=== PATIENT | female | born 1970 | race Caucasian/White ===

== ENCOUNTER 2020-05-09 17:31 | Outpatient (REF) | payer OTHER, SELFPAY ==
--- NOTE | 2020-05-09 | XR_ITS ---
EXAMINATION: XR FOOT, RIGHT XR CALCANEUS, RIGHT CLINICAL INFORMATION: Chronic right heel pain. Plantar fascial fibromatosis. COMPARISON: Radiographs right foot and right ankle 12/28/2016. TECHNIQUE: Right foot is imaged in 3 views. Padron view calcaneus is also included. There are a total of 4 views. FINDINGS: There is no acute or healing fracture, dislocation, destructive process. There is no joint narrowing or erosive change. The subtalar joint is unremarkable. The retrocalcaneal recess is preserved. There is a tiny plantar calcaneal spur. There is no mineralization seen along the expected course of the plantar fascia. The midfoot and forefoot shows no joint narrowing or erosive change. There is some mild cortical thickening and some cortical sclerosis intraosseous side distal tibia similar to prior radiographs 2017, not of acute clinical significance. XR/XR calcaneus RT min 2V IMPRESSION: 1. Small plantar calcaneal spur. 2. No mineralization in the expected course plantar fascia. 3. No joint narrowing or erosive changes.
--- NOTE | 2020-05-09 | XR_ITS ---
EXAMINATION: XR FOOT, RIGHT XR CALCANEUS, RIGHT CLINICAL INFORMATION: Chronic right heel pain. Plantar fascial fibromatosis. COMPARISON: Radiographs right foot and right ankle 12/28/2016. TECHNIQUE: Right foot is imaged in 3 views. Padron view calcaneus is also included. There are a total of 4 views. FINDINGS: There is no acute or healing fracture, dislocation, destructive process. There is no joint narrowing or erosive change. The subtalar joint is unremarkable. The retrocalcaneal recess is preserved. There is a tiny plantar calcaneal spur. There is no mineralization seen along the expected course of the plantar fascia. The midfoot and forefoot shows no joint narrowing or erosive change. There is some mild cortical thickening and some cortical sclerosis intraosseous side distal tibia similar to prior radiographs 2017, not of acute clinical significance. XR/XR foot RT min 3V IMPRESSION: 1. Small plantar calcaneal spur. 2. No mineralization in the expected course plantar fascia. 3. No joint narrowing or erosive changes.
== END 2020-05-09 17:32 | disposition home or self-care (01) ==
LOC: HO.XRAY 17:31
PROVIDERS: PCP Internal Medicine; Visit Provider Podiatrist Foot & Ankle Surgery
DX: M72.2 Plantar fascial fibromatosis (principal); G89.29 Other chronic pain; M79.671 Pain in right foot
CPT/HCPCS: 73630; 73650